=== PATIENT | female | born 1985 ===

== ENCOUNTER 2019-04-05 15:29 | Inpatient (IN) | payer OTHER ==
[2019-04-05] MEDS ORDERED: Lactated Ringers 1000 ML Bag* 1,000 ML IV ONE (15:56)
[2019-04-05] MEDS ORDERED: Buffered Lidocaine 1% SYRIN* 1 ML/SYRINGE INTRADERM ONE (15:56)
[2019-04-05] MEDS ORDERED: Lactated Ringers 1000 ML Bag* 1,000 ML IV SCH ×2 (16:00→19:00)
--- NOTE | 2019-04-05 16:09 | HP ---
General Information - Reason for Visit 33yo, , IUP@37+4 here in active labor - General Information Maternal Age: 33 Grav: 3 Para: 2 SAB: 0 IEA: 0 Estimated Due Date: 04/22/19 Determined By: LMP Gestational Age in Weeks/Days: 37+4 Maternal Blood Type and Rh: O Positive - Results this Serology/RPR Result: Non-Reactive Rubella Result: Immune HBsAg Result: Negative HIV Result: Negative GBS Culture Result: Negative Past Medical History Delivery History: Hx Uncomplicated Vaginal Delivery Delivery History Comment: Previous 2 deliveries in [facility] Past Medical History Comment: No current problems Pertinent Past Surgical History: None Pertinent Family History: Non-Contributory - Antepartal Records Antepartal Records: Reviewed, Complicated by: - ESL - pashto; enlarged cisterna magna 10.7 at 20wks, 10.1 at 27wks Review of Systems Constitutional: Uncomfortable CV Complaint: No Respiratory: Shortness of Breath: No Gastrointestinal: No Nausea/Vomiting, Normal Bowel Movement Genitourinary: Leaking Fluid, No Dysuria, Spotting Musculoskeletal: No Epigastric Pain, Contractions Neurological: No Headache, No Visual Changes Movement: Normal Exam Allergies/Adverse Reactions: Allergies No Known Allergies Allergy (Verified 04/05/19 15:35) 98.3, HR 60, RR 18, BP 106/61, 98% - Measurements Height: 4 ft 1 in Weight: 131 lb Body Mass Index (BMI): 38.3 - Exam Breast: Breast Exam Deferred CVA: No CVA Tenderness Extremities: No Edema Heart: Normal Rhythm/Heart Sounds HEENT: No Significant Findings Lungs: Clear Bilaterally Rectal: Rectal Exam Deferred Reflexes: DTR 2+ Thyroid: No Thyromegaly - Abdominal Exam Abdomen Exam: Non-Tender - Ultrasound/Biophysical Profile Ultrasound Status: Not Done Targeted Exam Findings Estimated Weight: 6.5lbs Cervical Exam: 5cm Effacement: 100% Station: -1 Presenting Part: Vertex Membrane Status: SROM Amniotic Fluid Evaluation: Gross Rupture, Clear - SROM@2200 on 04/04/19 Bleeding/Discharge: Bloody Show EFM Findings - External Monitor Findings Baseline Heart Rate: 140 External Monitor Findings: Variability Moderate, Variability Minimal External Monitor Findings Comment: prolonged decel, returned to baseline Contractions: Regular, 45-90 Seconds - q5 minutes, palpate moderate, good resting tone Assessment/Plan - Assessment ESL - [place] 33yo, IUP@37+4, here in active labor O+, RI, GBS negative, SROM@2200 on 04/04, clear complicated by enlarged cisterna magna 10.7@20 --> 10.1@27 Category II FHT, close monitoring Regular contractions Declines pain medication - Plan Plan: Admit - Anticipate Vaginal Delivery Plan Comment: Admit to L&D Given incomplete obstetric record from [facility] - recommend IV in labor Via proofer prepress, pt declines IV at this time. Consents to CBC, T&S, UDS LMB aware of pts presence on the unit and condition. Anticipate - Date/Time of Admission Date of Admission: 04/05/19 Time of Admission: 16:30
[2019-04-05 16:50] LABS: ABS Lymphocytes 2.1 10^3/ul (1.0-4.8); ABS Monocytes 0.5 10^3/ul (0-0.8); ABS Neutrophils 5.5 10^3/ul (1.5-7.7); Eosinophil % 0.4 %; Hematocrit 33 % (35-47); Hemoglobin 10.9 g/dL (12.0-16.0); Lymphocyte % 25.6 %; Mean Corpuscular HGB Conc 34 g/dL (31-36); Mean Corpuscular Hemoglobin 29 pg (27-31); Mean Corpuscular Volume 88 fL (80-97); Mean Platelet Volume 10.7 fL (7.4-10.4); Platelet Count 174 10^3/uL (150-450); Red Blood Count 3.72 10^6 /uL (3.70-4.87); Red Cell Distribution Width 15 % (10-15); White Blood Count 8.2 10^3/uL (3.5-10.8)
[2019-04-05] MEDS ORDERED: Dibucaine 1% 28.35 GM TUBE PR PRN (18:10)
[2019-04-05] MEDS ORDERED: Acetaminophen TAB* 325 MG PO PRN (18:10)
[2019-04-05] MEDS ORDERED: Glycerin ADULT SUPP PR PRN (18:10)
[2019-04-05] MEDS ORDERED: Witch Hazel PAD* JAR TOPICAL PRN (18:10)
[2019-04-05] MEDS ORDERED: OXYTOCIN* 10 UNITS/ML 1 ML VIAL IM ONE (18:10)
[2019-04-05] MEDS: Ibuprofen TAB* 600 MG PO SCH (20:25)
--- NOTE | 2019-04-05 20:25 | PROCNOTE ---
[facility] OB: Delivery Note - Delivery A Date of : 04/05/19 Time of : 17:49 [place] Sex: Male Weight at : 8 lb Score 1 Minute: 9 Score 5 Minutes: 9 Gestational Age in Weeks and Days at Delivery: 37 Weeks and 4 Days Delivery Method: Spontaneous Vaginal Labor: Spontaneous Did Patient attempt ?: N/A, No Previous Amniotic Fluid: Clear Estimated Blood Loss: 300 Anesthesia/Analgesia: None Delivered By: Dalila Thompson Nursery Level of Nursery: Regular/Bedside - Perineum Perineal Injury: Perineal Laceration, 1st Degree Perineal Injury Comment: Small, hemostatic Perineal Repair: None - Events Delivery Events of Note: Pitocin Only After Delivery Delivery Events of Note Comment: 10 Units IM Pitocin given in Left Leg - Additional Delivery Notes Additional Delivery Notes: Normal spontaneous vertex delivery of live male, 8lbs and Apgars 9/9. Delivered occipital-anterior (SHU), nuchal cord. Body delivered without difficulty. Baby placed on mothers abdomen. Cord clamped and cut by friend after pulsations ceased. Placenta delivered spontaneously via worthy, appears intact, 3vc. Pitocin given via IM for active management of 3rd stage. Perineum and vagina inspected - small first degree laceration noted. Hemostatic, not repaired. EBL 300mL. Mom and baby stable at time of note.
[2019-04-05] MEDS ORDERED: Simethicone TAB* 80 MG TAB.CHEW PO SCH (21:00)
[2019-04-06] MEDS: Docusate CAP* 100 MG PO SCH ×4 (00:13→20:33)
[2019-04-06] MEDS: Ibuprofen TAB* 600 MG PO SCH ×4 (01:52→19:00)
[2019-04-06 07:40] LABS: ABS Eosinophils 0.1 10^3/ul (0-0.6); ABS Lymphocytes 2.1 10^3/ul (1.0-4.8); ABS Monocytes 0.7 10^3/ul (0-0.8); Eosinophil % 0.9 %; Hematocrit 28 % (35-47); Hemoglobin 9.7 g/dL (12.0-16.0); Lymphocyte % 23.6 %; Mean Corpuscular HGB Conc 35 g/dL (31-36); Mean Corpuscular Hemoglobin 30 pg (27-31); Mean Corpuscular Volume 87 fL (80-97); Mean Platelet Volume 10.4 fL (7.4-10.4); Platelet Count 161 10^3/uL (150-450); Red Blood Count 3.21 10^6 /uL (3.70-4.87); Red Cell Distribution Width 15 % (10-15)
[2019-04-06] MEDS: Ferrous Gluconate TAB* 324 MG TAB PO SCH ×2 (08:32→20:32)
[2019-04-07] MEDS: Ibuprofen TAB* 600 MG PO SCH ×2 (03:32→09:08)
[2019-04-07] MEDS: Ferrous Gluconate TAB* 324 MG TAB PO SCH (09:08)
[2019-04-07] MEDS: Docusate CAP* 100 MG PO SCH (09:08)
[2019-04-07 10:13] VITALS: BP 104/60
== END 2019-04-07 16:45 | disposition home or self-care (01) | DRG 560 ==
LOC: MCHOBOUT 15:29 → MCHOB 16:06
PROVIDERS: ADMIT Advanced Practice Midwife; ATTEND Advanced Practice Midwife
PROC: 10E0XZZ Delivery of Products of Conception, External Approach (ICD-10-PCS; principal; 2019-04-05)
PROC: 4A1HXCZ Monitoring of Products of Conception, Cardiac Rate, External Approach (ICD-10-PCS; 2019-04-05)
DX: O76 Abnormality in fetal heart rate and rhythm complicating labor and delivery (principal); Z37.0 Single live birth; O70.0 First degree perineal laceration during delivery; O35.0XX0 Maternal care for (suspected) central nervous system malformation in fetus, not applicable or unspecified; O69.1XX0 Labor and delivery complicated by cord around neck, with compression, not applicable or unspecified; O90.81 Anemia of the puerperium; Z3A.37 37 weeks gestation of pregnancy
CPT/HCPCS: 36415; 85025; 86850; 86900; 86901; A9270-GY; J2590